=== PATIENT | male | born 1990 | race Caucasian/White ===

== ENCOUNTER 2022-10-01 14:45 | Emergency (ER) | payer SELFPAY ==
[2022-10-01] MEDS ORDERED: Sodium Chloride For Inhalation 0.9% 3 ML NEB ONE (15:08)
[2022-10-01] MEDS ORDERED: Lidocaine Viscous Sol 2% 15 ml UD Cup ONE (15:08)
[2022-10-01] MEDS ORDERED: Dexamethasone 20 MG/5 ML VIAL ONE (15:10)
[2022-10-01] MEDS ORDERED: Clindamycin 150 MG CAP ONE (15:24)
[2022-10-01] MEDS ORDERED: Ondansetron ODT 4 MG TAB ONE (15:56)
== END 2022-10-01 16:07 | disposition home or self-care (01) ==
LOC: NAV ERS 14:45
DX: J03.90 Acute tonsillitis, unspecified (principal); E11.9 Type 2 diabetes mellitus without complications; I10 Essential (primary) hypertension; Z79.84 Long term (current) use of oral hypoglycemic drugs; Z79.899 Other long term (current) drug therapy
CPT/HCPCS: 87081; 87430; J1100; Q0162